=== PATIENT | male | born 1975 | race African-American/Black ===

== ENCOUNTER 2017-11-15 23:03 | Emergency (ER) | payer OTHER ==
[~2017-11-15] VITALS: Ht 180.3 cm; Wt 85.7 kg
[2017-11-15 23:31] VITALS: Ht 180.3 cm; Wt 85.7 kg
[2017-11-16 02:07] LABS: BASOPHIL % 0.8 % (0-2); PLATELET COUNT 236 x10^3mcL (130-400); RED CELL DISTRIBUTION WIDTH 14.5 % (11.5-14.5)
[2017-11-16 02:24] LABS: ALBUMIN 3.5 g/dL (3.4-5.0); ALKALINE PHOSPHATASE 73 U/L (46-116); ALT/SGPT 28 U/L (16-63); AST/SGOT 18 U/L (15-37); BILIRUBIN TOTAL 0.6 mg/dL (0.20-1.00); CALCIUM 7.6 mg/dL (8.5-10.1); CHLORIDE SERUM 103 mmol/L (98-107); CREATININE SERUM 0.8 mg/dL (0.7-1.3); GFR1 > 60 mL/min; GLUCOSE SERUM 96 mg/dL (74-106); SODIUM SERUM 138 mmol/L (136-145); TOTAL PROTEIN, SERUM 7.2 g/dL (6.4-8.2)
[2017-11-16 02:56] VITALS: BP 118/77
[2017-11-16 03:05] LABS: POTASSIUM SERUM 2.9 mmol/L (3.5-5.1)
[2017-11-16 03:12] LABS: AMPHETAMINE QUAL UR POSITIVE (See below)
== END 2017-11-16 02:56 | disposition home or self-care (01) ==
LOC: ED 23:03
PROVIDERS: Emergency Medicine Emergency Medical Services
DX: F10.129 Alcohol abuse with intoxication, unspecified (principal); F15.10 Other stimulant abuse, uncomplicated; F12.10 Cannabis abuse, uncomplicated; J45.909 Unspecified asthma, uncomplicated; I10 Essential (primary) hypertension
CPT/HCPCS: 36415; G0480; J7030

== ENCOUNTER 2019-01-14 23:24 | Emergency (ER) | payer OTHER ==
[~2019-01-14] VITALS: Ht 172.7 cm; Wt 93.4 kg
[2019-01-14 23:32] VITALS: Ht 172.7 cm; Wt 93.4 kg
[2019-01-15 02:22] VITALS: BP 160/112
== END 2019-01-15 02:22 | disposition home or self-care (01) ==
LOC: ED 23:24
DX: Z76.0 Encounter for issue of repeat prescription (principal); J45.909 Unspecified asthma, uncomplicated; I10 Essential (primary) hypertension; F17.210 Nicotine dependence, cigarettes, uncomplicated; Z71.6 Tobacco abuse counseling; F15.90 Other stimulant use, unspecified, uncomplicated
CPT/HCPCS: 99406

== ENCOUNTER 2019-12-19 09:10 | Emergency (ER) | payer SELFPAY ==
[~2019-12-19] VITALS: Ht 180.3 cm; Wt 93.0 kg
[2019-12-19 09:16] VITALS: Ht 180.3 cm; Wt 93.0 kg
[2019-12-19 10:52] VITALS: BP 142/82
== END 2019-12-19 10:52 | disposition home or self-care (01) ==
LOC: ED 09:10
DX: L97.519 Non-pressure chronic ulcer of other part of right foot with unspecified severity (principal); L97.919 Non-pressure chronic ulcer of unspecified part of right lower leg with unspecified severity; J45.909 Unspecified asthma, uncomplicated; F17.210 Nicotine dependence, cigarettes, uncomplicated; Z71.6 Tobacco abuse counseling
CPT/HCPCS: 82962; 99406